=== PATIENT | female | born 1960 | race Caucasian/White ===

== ENCOUNTER 2017-02-05 09:09 | Emergency (ER) | payer OTHER ==
[~2017-02-05] VITALS: Ht 175.3 cm; Wt 149.7 kg
[~2017-02-05 09:09] MED LIST: CALCTAB25 PO; CEPH-37 PO; CHOL20007 PO; FLUO10CA15 PO; LIS10T PO; MULTTAB61 PO
[2017-02-05 12:14] VITALS: BP 138/76
== END 2017-02-05 12:38 | disposition home or self-care (01) ==
LOC: ER 09:09
DX: M54.42 Lumbago with sciatica, left side (principal); M54.16 Radiculopathy, lumbar region; I12.9 Hypertensive chronic kidney disease with stage 1 through stage 4 chronic kidney disease, or unspecified chronic kidney disease; N18.9 Chronic kidney disease, unspecified; Z88.8 Allergy status to other drugs, medicaments and biological substances; Z91.041 Radiographic dye allergy status
CPT/HCPCS: 93971

== ENCOUNTER 2017-05-27 20:00 | Emergency (ER) | payer OTHER ==
[~2017-05-27] VITALS: Ht 175.3 cm; Wt 142.9 kg
[2017-05-27 20:58] LABS: Urine Bilirubin Negative (Negative); Urine Blood Negative /uL (Negative); Urine Color Yellow (Yellow); Urine Glucose Normal (Normal); Urine Ketone Negative (Negative); Urine Mucus FEW (None Seen); Urine Nitrite Negative (Negative); Urine RBC 1 /hpf (0 - 4); Urine Squamous Epithelial Cell FEW /hpf (<5); Urine Urobilinogen Normal (Negative); Urine pH 5.5 (5.0-8.0)
[2017-05-27 21:35] LABS: Basophils # (auto) 0 uL; Basophils % (auto) 0.4 % (0.0-2.0); CONDITION Y; Eosinophils # (auto) 0.2 uL; Eosinophils % (auto) 1.6 % (0.0-7.0); Hematocrit 46.9 % (36.0-46.0); Hemoglobin 15.4 g/dL (12.2-16.2); Lymphocytes # (auto) 1.7 uL; Lymphocytes % (auto) 15.1 % (10.0-50.0); Mean Corpuscular Hemoglobin 28.4 pg (28.0-32.0); Mean Corpuscular Hgb Conc. 32.9 g/dL (32.0-36.0); Mean Corpuscular Volume 86.3 fL (80.0-100.0); Mean Platelet Volume 9.2 fL (7.4-10.4); Monocytes % (auto) 9.1 % (0.0-12.0); Neutrophils # (auto) 8.4 uL; Neutrophils % (auto) 73.8 % (37.0-80.0); Platelet Count (auto) 353 10^3/uL (140-450); Red Cell Distribution Width 15.1 % (11.6-16.0); White Blood Cell 11.3 10^3/uL (4.4-10.8)
[2017-05-27 21:45] LABS: INR 1.01 (0.9-1.15); Partial Thromboplastin Time 27.3 sec (22.64-33.71)
[2017-05-27 21:51] LABS: Albumin 3.5 g/dL (3.4-5.0); Bilirubin, Total 0.2 mg/dL (0.2-1.0); Calcium 9.3 mg/dL (8.5-10.1); Potassium 4.5 mmol/L (3.5-5.1); Total Protein 7.7 g/dL (6.4-8.2)
[2017-05-28 05:13] VITALS: BP 134/77
== END 2017-05-28 05:14 | disposition home or self-care (01) ==
LOC: ER 20:03
DX: R42 Dizziness and giddiness (principal); I12.9 Hypertensive chronic kidney disease with stage 1 through stage 4 chronic kidney disease, or unspecified chronic kidney disease; N18.9 Chronic kidney disease, unspecified; E66.01 Morbid (severe) obesity due to excess calories; I82.501 Chronic embolism and thrombosis of unspecified deep veins of right lower extremity; M54.31 Sciatica, right side
CPT/HCPCS: 36415; 70450; 80053; 81001; 84484; 85025; 85610; 85730; 93005

== ENCOUNTER → 2017-11-25 | Outpatient (CLI) | payer OTHER ==
[2017-11-25 08:33] LABS: Basophils # (auto) 0.1 uL; Basophils % (auto) 0.7 % (0.0-2.0); Eosinophils # (auto) 0.2 uL; Eosinophils % (auto) 2.5 % (0.0-7.0); Hematocrit 46.3 % (36.0-46.0); Hemoglobin 15.4 g/dL (12.2-16.2); Lymphocytes # (auto) 1.5 uL; Mean Corpuscular Hemoglobin 28.3 pg (28.0-32.0); Mean Corpuscular Hgb Conc. 33.2 g/dL (32.0-36.0); Mean Corpuscular Volume 85.3 fL (80.0-100.0); Monocytes # (auto) 0.7 uL; Monocytes % (auto) 9.1 % (0.0-12.0); Neutrophils # (auto) 5.2 uL; Neutrophils % (auto) 67.7 % (37.0-80.0); Nucleated Red Blood Cells % 0.1 %; Platelet Count (auto) 316 10^3/uL (140-450); Red Blood Cells 5.42 10^6/uL (4.0-5.20); Red Cell Distribution Width 15.2 % (11.8-14.3); White Blood Cell 7.7 10^3/uL (4.4-10.8)
[2017-11-25 08:44] LABS: Albumin 3.4 g/dL (3.4-5.0); BUN/Creatinine Ratio 15.7; Bilirubin, Total 0.4 mg/dL (0.2-1.0); Total Protein 7.6 g/dL (6.4-8.2)
== END | disposition home or self-care (01) ==
LOC: LAB 07:50
PROVIDERS: ATTEND Physician Assistant
DX: I10 Essential (primary) hypertension (principal); E66.01 Morbid (severe) obesity due to excess calories; I83.93 Asymptomatic varicose veins of bilateral lower extremities; E55.9 Vitamin D deficiency, unspecified; G60.9 Hereditary and idiopathic neuropathy, unspecified
CPT/HCPCS: 36415; 80053; 80061; 82306; 83036; 85025

== ENCOUNTER 2018-01-11 16:09 | Emergency (ER) | payer OTHER ==
[~2018-01-11] VITALS: Ht 175.3 cm; Wt 145.1 kg
[2018-01-11 16:47] VITALS: BP 124/72
[2018-01-11] MEDS ORDERED: KETOROLAC TROMETH 60MG/2ML VIAL IM ONE (17:00)
== END 2018-01-11 18:26 | disposition home or self-care (01) ==
LOC: ER 16:16
DX: S30.0XXA Contusion of lower back and pelvis, initial encounter (principal); S69.91XA Unspecified injury of right wrist, hand and finger(s), initial encounter; I12.9 Hypertensive chronic kidney disease with stage 1 through stage 4 chronic kidney disease, or unspecified chronic kidney disease; N18.9 Chronic kidney disease, unspecified; Z88.8 Allergy status to other drugs, medicaments and biological substances; W01.0XXA Fall on same level from slipping, tripping and stumbling without subsequent striking against object, initial encounter; Y93.89 Activity, other specified; Y99.8 Other external cause status; Y92.89 Other specified places as the place of occurrence of the external cause
CPT/HCPCS: 29125; 72220; 73110; 96372; 99284; J1885

== ENCOUNTER 2018-09-29 10:03 | Emergency (ER) | payer OTHER ==
[~2018-09-29] VITALS: Ht 162.6 cm; Wt 90.7 kg
[2018-09-29 13:24] VITALS: BP 145/82
== END 2018-09-29 13:27 | disposition home or self-care (01) ==
LOC: ER 10:03
DX: S76.011A Strain of muscle, fascia and tendon of right hip, initial encounter (principal); I12.9 Hypertensive chronic kidney disease with stage 1 through stage 4 chronic kidney disease, or unspecified chronic kidney disease; N18.9 Chronic kidney disease, unspecified; Z88.6 Allergy status to analgesic agent; Z91.041 Radiographic dye allergy status; X50.0XXA Overexertion from strenuous movement or load, initial encounter; Y93.89 Activity, other specified; Y99.8 Other external cause status; Y92.89 Other specified places as the place of occurrence of the external cause
CPT/HCPCS: 73502

== ENCOUNTER → 2019-01-16 | Outpatient (CLI) | payer OTHER ==
[2019-01-16 10:08] LABS: Basophils # (auto) 0.1 uL; Basophils % (auto) 0.8 % (0.0-2.0); Eosinophils # (auto) 0.1 uL; Eosinophils % (auto) 2.3 % (0.0-7.0); Hematocrit 46.2 % (36.0-46.0); Lymphocytes # (auto) 1.3 uL; Lymphocytes % (auto) 20.4 % (10.0-50.0); Mean Corpuscular Hemoglobin 28.4 pg (28.0-32.0); Mean Corpuscular Hgb Conc. 32.4 g/dL (32.0-36.0); Mean Corpuscular Volume 87.5 fL (80.0-100.0); Monocytes # (auto) 0.6 uL; Neutrophils # (auto) 4.4 uL; Neutrophils % (auto) 67.5 % (37.0-80.0); Nucleated Red Blood Cells % 0.1 %; Platelet Count (auto) 280 10^3/uL (140-450); Red Blood Cells 5.28 10^6/uL (4.0-5.20); Red Cell Distribution Width 14.9 % (11.8-14.3); White Blood Cell 6.5 10^3/uL (4.4-10.8)
[2019-01-16 10:42] LABS: Albumin 3.5 g/dL (3.4-5.0); Calcium 9.4 mg/dL (8.5-10.1); Potassium 5.1 mmol/L (3.5-5.1)
[2019-01-16 10:48] LABS: BUN/Creatinine Ratio 28.8; Bilirubin, Total 0.4 mg/dL (0.2-1.0); Total Protein 7.4 g/dL (6.4-8.2)
== END | disposition home or self-care (01) ==
LOC: LAB 09:46
PROVIDERS: ATTEND Physician Assistant
DX: I82.409 Acute embolism and thrombosis of unspecified deep veins of unspecified lower extremity (principal); I12.9 Hypertensive chronic kidney disease with stage 1 through stage 4 chronic kidney disease, or unspecified chronic kidney disease; N18.9 Chronic kidney disease, unspecified; R63.5 Abnormal weight gain; E55.9 Vitamin D deficiency, unspecified
CPT/HCPCS: 36415; 80053; 80061; 82306; 85025

== ENCOUNTER → 2019-04-05 | Outpatient (CLI) | payer OTHER | END | disposition home or self-care (01) | LOC: CARD WEST 10:31 | PROVIDERS: ATTEND Internal Medicine | DX: R94.31 Abnormal electrocardiogram [ECG] [EKG] (principal); I12.9 Hypertensive chronic kidney disease with stage 1 through stage 4 chronic kidney disease, or unspecified chronic kidney disease; N18.9 Chronic kidney disease, unspecified | CPT/HCPCS: 93306 ==

== ENCOUNTER → 2019-11-09 | Outpatient (CLI) | payer OTHER | END | disposition home or self-care (01) | LOC: LAB 10:38 | PROVIDERS: ATTEND Physician Assistant | DX: R19.8 Other specified symptoms and signs involving the digestive system and abdomen (principal) | CPT/HCPCS: 87045; 87177; 87427 ==

== ENCOUNTER 2020-11-03 13:10 | Emergency (ER) | payer OTHER ==
[~2020-11-03] VITALS: Ht 175.3 cm; Wt 140.6 kg
[~2020-11-03 13:10] MED LIST changes: +MULT-1018 PO; -MULTTAB61 PO
[2020-11-03 13:47] LABS: Basophils # (auto) 0.1 10 ^3/uL (0-0.2); Basophils % (auto) 0.7 % (0.0-2.0); Eosinophils # (auto) 0.1 10 ^3/uL (0-0.8); Eosinophils % (auto) 1.4 % (0.0-7.0); Hematocrit 42.3 % (36.0-46.0); Hemoglobin 14.2 g/dL (12.2-16.2); Lymphocytes # (auto) 1.6 10 ^3/uL (0.4-5.4); Lymphocytes % (auto) 20.7 % (10.0-50.0); Mean Corpuscular Hemoglobin 29.6 pg (28.0-32.0); Mean Corpuscular Hgb Conc. 33.6 g/dL (32.0-36.0); Mean Corpuscular Volume 87.9 fL (80.0-100.0); Monocytes # (auto) 0.6 10 ^3/uL (0-1.3); Monocytes % (auto) 8.3 % (0.0-12.0); Neutrophils # (auto) 5.4 10 ^3/uL (1.6-8.6); Neutrophils % (auto) 68.9 % (37.0-80.0); Nucleated Red Blood Cells % 0.1 %; Platelet Count (auto) 293 10^3/uL (140-450); Red Blood Cells 4.81 10^6/uL (4.0-5.20); Red Cell Distribution Width 13.9 % (11.8-14.3); White Blood Cell 7.8 10^3/uL (4.4-10.8)
[2020-11-03 14:01] LABS: Albumin 3.4 g/dL (3.4-5.0); Calcium 8.8 mg/dL (8.5-10.1); Magnesium 2.3 mg/dL (1.6-2.6); Potassium 4.2 mmol/L (3.5-5.1)
[2020-11-03 14:06] LABS: Bilirubin, Total 0.4 mg/dL (0.2-1.0); Total Protein 7.4 g/dL (6.4-8.2)
[2020-11-03] MEDS ORDERED: HYDROcodone-ACET 5/325MG TAB PO ONE (16:15)
[2020-11-03] MEDS ORDERED: ONDANSETRON ODT 4 MG TAB PO ONE (16:15)
[2020-11-03 16:48] LABS: Urine Bacteria FEW /hpf (None Seen); Urine Blood TRACE /uL (Negative); Urine Mucus FEW (None Seen); Urine Specific Gravity 1.022 (1.001-1.035); Urine WBC 6 /hpf (0 - 5)
[2020-11-03 18:09] VITALS: BP 135/85
== END 2020-11-03 18:13 | disposition home or self-care (01) ==
LOC: ER 13:10
DX: N39.0 Urinary tract infection, site not specified (principal); I12.9 Hypertensive chronic kidney disease with stage 1 through stage 4 chronic kidney disease, or unspecified chronic kidney disease; N18.9 Chronic kidney disease, unspecified; Z79.899 Other long term (current) drug therapy; Z88.0 Allergy status to penicillin
CPT/HCPCS: 36415; 74176; 80053; 81001; 82150; 83605; 83690; 83735; 85025; 99284; Q0162

== ENCOUNTER 2023-08-30 14:55 | Inpatient (IN) | payer OTHER ==
[~2023-08-30] VITALS: Ht 175.3 cm; Wt 150.0 kg
[2023-08-30 15:44] LABS: Basophils # (auto) 0.1 10 ^3/uL (0-0.2); Basophils % (auto) 1.2 % (0.0-2.0); Eosinophils # (auto) 0.1 10 ^3/uL (0-0.8); Eosinophils % (auto) 1.6 % (0.0-7.0); Hematocrit 26.4 % (36.0-46.0); Hemoglobin 7.5 g/dL (12.2-16.2); Lymphocytes # (auto) 1.7 10 ^3/uL (0.4-5.4); Lymphocytes % (auto) 21.3 % (10.0-50.0); Mean Corpuscular Hemoglobin 15.9 pg (28.0-32.0); Mean Corpuscular Hgb Conc. 28.4 g/dL (32.0-36.0); Mean Corpuscular Volume 56.2 fL (80.0-100.0); Monocytes # (auto) 0.8 10 ^3/uL (0-1.3); Monocytes % (auto) 10.1 % (0.0-12.0); Neutrophils # (auto) 5.3 10 ^3/uL (1.6-8.6); Neutrophils % (auto) 65.8 % (37.0-80.0); Red Blood Cells 4.69 10^6/uL (4.0-5.20); White Blood Cell 8.1 10^3/uL (4.4-10.8)
[2023-08-30 15:45] LABS: Red Cell Distribution Width 21.4 % (11.8-14.3)
[2023-08-30] MEDS ORDERED: PANT40TA2 PO (15:50)
[2023-08-30 16:14] LABS: Alanine Aminotransferase 14 U/L (7-40); Albumin 4.2 g/dL (3.2-4.8); Alkaline Phosphatase 78 U/L (46-116); Anion Gap 9 (5-15); Aspartate Aminotransferase 15 U/L (13-40); BUN/Creatinine Ratio 18.5 (10.0-20.0); Blood Urea Nitrogen 15 mg/dL (9-23); Calcium 9.3 mg/dL (8.5-10.1); Carbon Dioxide 23 mmol/L (20-30); Chloride 107 mmol/L (98-107); Glucose 111 mg/dL (74-106); Sodium 139 mmol/L (136-145)
[2023-08-30 16:15] LABS: Bilirubin, Total 0.3 mg/dL (0.2-1.0); Total Protein 6.6 g/dL (5.7-8.2)
[2023-08-30] MEDS ORDERED: ONDANSETRON HCL 4 MG/2 ML VIAL IV ONE (16:30)
[2023-08-30] MEDS ORDERED: ENOXAPARIN SOD 120 MG/0.8 ML SYRINGE SC ONE (16:30)
[2023-08-30] MEDS ORDERED: MORPHINE SULFATE INJ 2 MG/ml SYRG IV ONE (16:30)
[2023-08-30 16:33] LABS: Anisocytosis Moderate; Hypochromia Marked; Large Platelets FEW; Platelet Estimate Increased
[2023-08-30 16:43] LABS: Lipase 26 U/L (12-53)
[2023-08-30] MEDS ORDERED: ONDANSETRON HCL 4 MG/2 ML VIAL IV PRN (19:15)
[2023-08-30] MEDS ORDERED: MORPHINE SULFATE 4 MG/ML SYR/VIAL IV PRN (19:15)
[2023-08-30] MEDS ORDERED: NITROGLYCERIN 0.4 MG SL TAB SL PRN (19:15)
[2023-08-30] MEDS ORDERED: ACETAMINOPHEN 325 MG TAB PO PRN (19:15)
[2023-08-30 20:15] LABS: % Iron Saturation 6.5 % (15-50)
[2023-08-30 20:40] LABS: Hemoglobin 7.8 g/dL (12.2-16.2)
[2023-08-30 20:45] VITALS: PULSE 65; RESP 18; O2SAT 96
[2023-08-30 20:54] LABS: INR 1.07 (0.9-1.15); Prothrombin Time 11.2 sec (9.3-11.8)
[2023-08-30] MEDS: ATORVASTATIN 20 MG TAB PO SCH (21:13)
[2023-08-30] MEDS: PANTOPRAZOLE 40 MG/10 ML VIAL INJ IV SCH (21:14)
[2023-08-30] MEDS: CALCIUM W/VIT D (600MG/400IU) TAB PO SCH (21:14)
[2023-08-30 21:34] LABS: Ferritin 2.5 ng/mL (10-291); Folate (Folic Acid) > 24.00 ng/mL (>5.38)
[2023-08-30 23:58] VITALS: BP 146/80; PULSE 69; RESP 14; TEMP 98.4
[2023-08-31] VITALS (7 sets, daily range): BP systolic 112–152; BP diastolic 56–73; PULSE 64–84; RESP 12–20; TEMP 98.2–98.4; O2SAT 93–96
[2023-08-31 05:33] LABS: Alanine Aminotransferase 10 U/L (7-40); Albumin 3.7 g/dL (3.2-4.8); Anion Gap 7 (5-15); Aspartate Aminotransferase 13 U/L (13-40); Blood Urea Nitrogen 12 mg/dL (9-23); Calcium 8.4 mg/dL (8.7-10.4); Carbon Dioxide 23 mmol/L (20-30); Chloride 110 mmol/L (98-107); Glucose 100 mg/dL (74-106); Potassium 3.7 mmol/L (3.5-5.1); Sodium 140 mmol/L (136-145)
[2023-08-31 05:34] LABS: Bilirubin, Total 0.5 mg/dL (0.2-1.0)
[2023-08-31 05:38] LABS: Basophils # (auto) 0.1 10 ^3/uL (0-0.2); Eosinophils # (auto) 0.1 10 ^3/uL (0-0.8); Lymphocytes # (auto) 1.6 10 ^3/uL (0.4-5.4); Monocytes # (auto) 0.8 10 ^3/uL (0-1.3); Neutrophils # (auto) 4.6 10 ^3/uL (1.6-8.6); Neutrophils % (auto) 63.9 % (37.0-80.0); White Blood Cell 7.2 10^3/uL (4.4-10.8)
[2023-08-31 05:41] LABS: Basophils % (auto) 1.4 % (0.0-2.0); Hematocrit 25.6 % (36.0-46.0); Hemoglobin 7.5 g/dL (12.2-16.2); Lymphocytes % (auto) 22.2 % (10.0-50.0); Mean Corpuscular Hemoglobin 17.3 pg (28.0-32.0); Mean Corpuscular Hgb Conc. 29.4 g/dL (32.0-36.0); Mean Corpuscular Volume 58.7 fL (80.0-100.0); Monocytes % (auto) 10.5 % (0.0-12.0); Red Blood Cells 4.36 10^6/uL (4.0-5.20)
[2023-08-31 05:46] LABS: Alkaline Phosphatase 72 U/L (46-116)
[2023-08-31 06:05] LABS: Red Cell Distribution Width 21.8 % (11.8-14.3)
[2023-08-31 07:02] LABS: Triglycerides 98 mg/dL (< 150)
[2023-08-31 07:03] LABS: LDL Cholesterol 84 mg/dL (< 100)
[2023-08-31 07:04] LABS: Cholesterol 131 mg/dL (< 200); HDL Cholesterol 36 mg/dL (40-59)
[2023-08-31 09:48] LABS: Urine Bacteria FEW /hpf (None Seen); Urine Blood Negative /uL (Negative); Urine Clarity HAZY (Clear); Urine Color Yellow (Yellow); Urine Mucus FEW (None Seen); Urine Protein, UAD TRACE (Negative); Urine Specific Gravity 1.023 (1.001-1.035); Urine Urobilinogen Normal (Negative); Urine WBC 3 /hpf (0 - 5); Urine pH 5.5 (5.0-8.0)
[2023-08-31] MEDS: FLUoxetine HCL 10 MG CAP PO SCH (11:28)
[2023-08-31] MEDS: CHOLECALCIFEROL (VITD3) 2,000 UNIT CAP/TAB PO SCH (11:29)
[2023-08-31] MEDS: DOCUSATE SOD 100 MG CAP PO SCH (11:29)
[2023-08-31] MEDS: MULTIPLE VITAMIN TAB PO SCH (11:30)
[2023-08-31] MEDS: PANTOPRAZOLE 40 MG/10 ML VIAL INJ IV SCH ×2 (11:30→22:03)
[2023-08-31] MEDS: CALCIUM W/VIT D (600MG/400IU) TAB PO SCH ×2 (11:30→22:03)
[2023-08-31] MEDS: LISINOPRIL 5 MG TAB PO SCH (11:31)
[2023-08-31 13:00] LABS: Hemoglobin 7.7 g/dL (12.2-16.2)
[2023-08-31] MEDS: SODIUM FERR GLUC 62.5MG/5ML 125 MG in SODIUM CHL 0.9% 100 ML IV SCH (16:03)
[2023-08-31 20:35] LABS: Hemoglobin 8.3 g/dL (12.2-16.2)
[2023-08-31] MEDS: ATORVASTATIN 20 MG TAB PO SCH (22:03)
[2023-09-01] VITALS (11 sets, daily range): BP systolic 106–139; BP diastolic 54–80; PULSE 68–95; RESP 15–20; TEMP 98–98.5; O2SAT 91–95
[2023-09-01 06:10] LABS: Anion Gap 7 (5-15); Calcium 9.1 mg/dL (8.5-10.1); Carbon Dioxide 25 mmol/L (20-30); Chloride 111 mmol/L (98-107); Sodium 143 mmol/L (136-145)
[2023-09-01 06:11] LABS: Basophils # (auto) 0.1 10 ^3/uL (0-0.2); Hemoglobin 7.6 g/dL (12.2-16.2); Lymphocytes # (auto) 1.9 10 ^3/uL (0.4-5.4); Monocytes # (auto) 0.9 10 ^3/uL (0-1.3)
[2023-09-01 06:13] LABS: Basophils % (auto) 1.1 % (0.0-2.0); Eosinophils # (auto) 0.3 10 ^3/uL (0-0.8); Eosinophils % (auto) 3.5 % (0.0-7.0); Lymphocytes % (auto) 24.9 % (10.0-50.0); Mean Corpuscular Hemoglobin 17.5 pg (28.0-32.0); Mean Corpuscular Hgb Conc. 29.3 g/dL (32.0-36.0); Mean Corpuscular Volume 59.6 fL (80.0-100.0); Monocytes % (auto) 11.9 % (0.0-12.0); Neutrophils # (auto) 4.5 10 ^3/uL (1.6-8.6); Neutrophils % (auto) 58.6 % (37.0-80.0); Red Blood Cells 4.36 10^6/uL (4.0-5.20); White Blood Cell 7.7 10^3/uL (4.4-10.8)
[2023-09-01 06:15] LABS: Red Cell Distribution Width 22.3 % (11.8-14.3)
[2023-09-01 06:16] LABS: BUN/Creatinine Ratio 16.4 (10.0-20.0); Blood Urea Nitrogen 12 mg/dL (9-23); Glucose 95 mg/dL (74-106)
[2023-09-01] MEDS ORDERED: ADENOSINE 126 MG in GIVE UN-DILUTED 0 ML IV ONE (07:45)
[2023-09-01] MEDS: PANTOPRAZOLE 40 MG/10 ML VIAL INJ IV SCH ×2 (10:06→21:44)
[2023-09-01] MEDS: CALCIUM W/VIT D (600MG/400IU) TAB PO SCH ×2 (10:06→21:44)
[2023-09-01] MEDS: MULTIPLE VITAMIN TAB PO SCH (10:06)
[2023-09-01] MEDS: CHOLECALCIFEROL (VITD3) 2,000 UNIT CAP/TAB PO SCH (10:06)
[2023-09-01] MEDS: DOCUSATE SOD 100 MG CAP PO SCH (10:06)
[2023-09-01] MEDS: FLUoxetine HCL 10 MG CAP PO SCH (10:06)
[2023-09-01] MEDS: LISINOPRIL 5 MG TAB PO SCH (10:07)
[2023-09-01] MEDS ORDERED: levoFLOXacin 500MG 100 ML IV ONE (11:15)
[2023-09-01] MEDS: SODIUM FERR GLUC 62.5MG/5ML 125 MG in SODIUM CHL 0.9% 100 ML IV SCH (15:08)
[2023-09-01] MEDS: ATORVASTATIN 20 MG TAB PO SCH (21:44)
[2023-09-02] VITALS (15 sets, daily range): BP systolic 116–152; BP diastolic 61–90; PULSE 55–77; RESP 12–18; TEMP 97.6–98.4; O2SAT 93–98
[2023-09-02 07:41] LABS: Basophils # (auto) 0.1 10 ^3/uL (0-0.2); Lymphocytes # (auto) 1.5 10 ^3/uL (0.4-5.4); Mean Corpuscular Hemoglobin 18.1 pg (28.0-32.0); Nucleated Red Blood Cells % 0.1 %
[2023-09-02 07:42] LABS: Basophils % (auto) 0.8 % (0.0-2.0); Eosinophils # (auto) 0.3 10 ^3/uL (0-0.8); Eosinophils % (auto) 2.8 % (0.0-7.0); Hemoglobin 8.7 g/dL (12.2-16.2); Mean Corpuscular Hgb Conc. 29.2 g/dL (32.0-36.0); Mean Corpuscular Volume 62.1 fL (80.0-100.0); Monocytes % (auto) 10.8 % (0.0-12.0); Neutrophils # (auto) 6.2 10 ^3/uL (1.6-8.6); Neutrophils % (auto) 68.6 % (37.0-80.0); Red Blood Cells 4.82 10^6/uL (4.0-5.20); Red Cell Distribution Width 25.4 % (11.8-14.3)
[2023-09-02] MEDS ORDERED: IODIXANOL 320MG/ML 100ML BTL IV ONE ×2 (07:46→08:44)
[2023-09-02] MEDS ORDERED: LIDOCAINE 2%HCL (LOCAL ANESTH.) INJ 20ML MDV ONE (07:46)
[2023-09-02] MEDS ORDERED: ANGIOMAX 250 MG VIAL IV ONE ×2 (07:48→08:52)
[2023-09-02] MEDS ORDERED: HEPARIN SODIUM (PORCINE) 5000 UNITS/ML 1ML VIAL ONE (07:48)
[2023-09-02] MEDS ORDERED: VERAPAMIL 2.5MG/ML INJ 2ML VIAL IV ONE (07:48)
[2023-09-02] MEDS ORDERED: SODIUM CHL 0.9% 50 ML ONE ×2 (07:49→08:52)
[2023-09-02] MEDS ORDERED: fentaNYL CITRATE 100 MCG/2 ML VL ONE (07:49)
[2023-09-02] MEDS ORDERED: MIDAZOLAM HCL 2MG/2ML 2ml VIAL (1mg/ml) ONE (07:49)
[2023-09-02 07:57] LABS: INR 1.09 (0.9-1.15); Partial Thromboplastin Time 20.1 SEC (24.5-34.5); Prothrombin Time 11.4 sec (9.3-11.8)
[2023-09-02 08:00] LABS: Alanine Aminotransferase 16 U/L (7-40); Albumin 3.7 g/dL (3.2-4.8); Alkaline Phosphatase 74 U/L (46-116); Anion Gap 7 (5-15); Aspartate Aminotransferase 30 U/L (13-40); BUN/Creatinine Ratio 14.1 (10.0-20.0); Bilirubin, Total 0.5 mg/dL (0.2-1.0); Blood Urea Nitrogen 9 mg/dL (9-23); Calcium 9.1 mg/dL (8.5-10.1); Carbon Dioxide 23 mmol/L (20-30); Chloride 110 mmol/L (98-107); Glucose 102 mg/dL (74-106); Potassium 4.3 mmol/L (3.5-5.1); Sodium 140 mmol/L (136-145)
[2023-09-02] MEDS ORDERED: CLOPIDOGREL 300 MG TAB ONE (09:02)
[2023-09-02] MEDS ORDERED: CLOPIDOGREL BISULFATE 75 MG TAB PO SCH (10:00)
[2023-09-02] MEDS ORDERED: ASPirin 81 mg TAB PO ONE (10:15)
[2023-09-02] MEDS ORDERED: hydrALAZINE HCL 20 MG/ML VL IV PRN (10:15)
[2023-09-02] MEDS: PANTOPRAZOLE 40 MG/10 ML VIAL INJ IV SCH (10:40)
[2023-09-02] MEDS: CALCIUM W/VIT D (600MG/400IU) TAB PO SCH (10:41)
[2023-09-02] MEDS: FLUoxetine HCL 10 MG CAP PO SCH (10:41)
[2023-09-02] MEDS: DOCUSATE SOD 100 MG CAP PO SCH (10:41)
[2023-09-02] MEDS: CHOLECALCIFEROL (VITD3) 2,000 UNIT CAP/TAB PO SCH (10:41)
[2023-09-02] MEDS: MULTIPLE VITAMIN TAB PO SCH (10:41)
[2023-09-02] MEDS: LISINOPRIL 5 MG TAB PO SCH (10:43)
[2023-09-02] MEDS: SODIUM FERR GLUC 62.5MG/5ML 125 MG in SODIUM CHL 0.9% 100 ML IV SCH (11:56)
[2023-09-02] MEDS ORDERED: FERR-7 PO (14:23)
[2023-09-02] MEDS ORDERED: DOCU-265 PO (14:23)
[2023-09-02] MEDS ORDERED: METO25TA5 PO (14:23)
[2023-09-02] MEDS ORDERED: CLOP75TA70 PO (14:23)
[2023-09-02] MEDS ORDERED: APIX5TAB PO (14:23)
[2023-09-02] MEDS ORDERED: ATOR20TA50 PO (14:23)
[2023-09-02] MEDS ORDERED: APIXABAN 2.5 MG TAB PO SCH (22:00)
[2023-09-03] MEDS ORDERED: CLOPIDOGREL BISULFATE 75 MG TAB PO SCH (10:00)
[2023-09-03] MEDS ORDERED: ASPirin 81 mg TAB PO SCH (10:00)
== END 2023-09-02 16:50 | disposition home or self-care (01) | DRG 270 ==
LOC: ER 14:55 → TELE 19:31 → TELE-WESTW 08-31 23:43
PROVIDERS: ADMIT Nurse Practitioner Family; ATTEND Nurse Practitioner Acute Care
PROC: 30233N1 Transfusion of Nonautologous Red Blood Cells into Peripheral Vein, Percutaneous Approach (ICD-10-PCS; 2023-08-31)
PROC: 027237Z Dilation of Coronary Artery, Three Arteries with Four or More Drug-eluting Intraluminal Devices, Percutaneous Approach (ICD-10-PCS; principal; 2023-09-02)
PROC: 5A02210 Assistance with Cardiac Output using Balloon Pump, Continuous (ICD-10-PCS; 2023-09-02)
PROC: 4A023N7 Measurement of Cardiac Sampling and Pressure, Left Heart, Percutaneous Approach (ICD-10-PCS; 2023-09-02)
PROC: B211YZZ Fluoroscopy of Multiple Coronary Arteries using Other Contrast (ICD-10-PCS; 2023-09-02)
DX: I25.110 Atherosclerotic heart disease of native coronary artery with unstable angina pectoris (principal); I21.4 Non-ST elevation (NSTEMI) myocardial infarction; D62 Acute posthemorrhagic anemia; N39.0 Urinary tract infection, site not specified; Z68.42 Body mass index [BMI] 45.0-49.9, adult; K44.9 Diaphragmatic hernia without obstruction or gangrene; K21.9 Gastro-esophageal reflux disease without esophagitis; K29.70 Gastritis, unspecified, without bleeding; D50.9 Iron deficiency anemia, unspecified; D75.839 Thrombocytosis, unspecified; E66.01 Morbid (severe) obesity due to excess calories; F32.A Depression, unspecified; I10 Essential (primary) hypertension; G47.30 Sleep apnea, unspecified; Z88.1 Allergy status to other antibiotic agents; Z88.0 Allergy status to penicillin; Z86.718 Personal history of other venous thrombosis and embolism
CPT/HCPCS: 33970; 36415; 36430; 71045; 74176; 78452; 80048; 80053; 80061; 81001; 82270; 82607; 82728; 82746; 83010; 83540; 83550; 83615; 83690; 83735; 84484; 85014; 85018; 85025; 85045; 85610; 85730; 86850; 86880; 86885; 86900; 86901; 86920; 92929; 92941; 93005; 93017; 93306; 93458; 99152; C9113; G0378; J0153; J1956; J2250; Q9967

== ENCOUNTER → 2023-09-07 | Outpatient (CLI) | payer OTHER ==
[~2023-09-07] MED LIST changes: +APIX5TAB PO; +ATOR20TA50 PO; +CLOP75TA70 PO; +DOCU-265 PO; +FERR-7 PO; +METO25TA5 PO; +PANT40TA2 PO
[2023-09-07 15:18] LABS: Basophils # (auto) 0.1 10 ^3/uL (0-0.2); Hematocrit 35.1 % (36.0-46.0); Hemoglobin 10.3 g/dL (12.2-16.2); Lymphocytes # (auto) 1.5 10 ^3/uL (0.4-5.4); Mean Corpuscular Hemoglobin 18.7 pg (28.0-32.0); Mean Corpuscular Hgb Conc. 29.2 g/dL (32.0-36.0); Red Blood Cells 5.49 10^6/uL (4.0-5.20)
[2023-09-07 15:20] LABS: Basophils % (auto) 0.7 % (0.0-2.0); Eosinophils # (auto) 0.2 10 ^3/uL (0-0.8); Eosinophils % (auto) 2.6 % (0.0-7.0); Lymphocytes % (auto) 16.2 % (10.0-50.0); Mean Corpuscular Volume 63.9 fL (80.0-100.0); Neutrophils # (auto) 6.5 10 ^3/uL (1.6-8.6); Neutrophils % (auto) 69.5 % (37.0-80.0); White Blood Cell 9.3 10^3/uL (4.4-10.8)
[2023-09-07 15:27] LABS: Red Cell Distribution Width 31.2 % (11.8-14.3)
== END | disposition home or self-care (01) ==
LOC: LAB 15:02
PROVIDERS: ATTEND Student in an Organized Health Care Education/Training Program
DX: I10 Essential (primary) hypertension (principal)
CPT/HCPCS: 36415; 85025

== ENCOUNTER → 2024-04-04 | Outpatient (CLI) | payer OTHER | END | disposition home or self-care (01) | LOC: XYW 09:57 | PROVIDERS: ATTEND Student in an Organized Health Care Education/Training Program | DX: I35.1 Nonrheumatic aortic (valve) insufficiency (principal); I25.9 Chronic ischemic heart disease, unspecified | CPT/HCPCS: 93306 ==

== ENCOUNTER → 2024-06-29 | Outpatient (CLI) | payer OTHER ==
[2024-06-29 10:00] LABS: Basophils # (auto) 0 10 ^3/uL (0-0.2); Basophils % (auto) 0.8 % (0.0-2.0); Eosinophils # (auto) 0.1 10 ^3/uL (0-0.8); Eosinophils % (auto) 2.3 % (0.0-7.0); Hematocrit 45.5 % (36.0-46.0); Hemoglobin 15.6 g/dL (12.2-16.2); Lymphocytes # (auto) 1.3 10 ^3/uL (0.4-5.4); Lymphocytes % (auto) 21.4 % (10.0-50.0); Mean Corpuscular Hemoglobin 31.1 pg (28.0-32.0); Mean Corpuscular Hgb Conc. 34.3 g/dL (32.0-36.0); Mean Corpuscular Volume 90.7 fL (80.0-100.0); Monocytes # (auto) 0.5 10 ^3/uL (0-1.3); Monocytes % (auto) 8.8 % (0.0-12.0); Neutrophils % (auto) 66.7 % (37.0-80.0); Nucleated Red Blood Cells % 0.1 %; Platelet Count (auto) 240 10^3/uL (140-450); Red Blood Cells 5.01 10^6/uL (4.0-5.20); Red Cell Distribution Width 13.9 % (11.8-14.3)
[2024-06-29 10:27] LABS: Alanine Aminotransferase 18 U/L (7-40); Albumin 4.3 g/dL (3.2-4.8); Alkaline Phosphatase 85 U/L (46-116); Anion Gap 7 (5-15); Aspartate Aminotransferase 12 U/L (13-40); BUN/Creatinine Ratio 15.6 (10.0-20.0); Bilirubin, Total 0.6 mg/dL (0.2-1.0); Blood Urea Nitrogen 12 mg/dL (9-23); Calcium 9.9 mg/dL (8.7-10.4); Carbon Dioxide 26 mmol/L (20-31); Chloride 110 mmol/L (98-107); Cholesterol 110 mg/dL (< 200); Glucose 97 mg/dL (74-106); HDL Cholesterol 47 mg/dL (40-59); LDL Cholesterol 50 mg/dL (< 100); Potassium 4.3 mmol/L (3.5-5.1); Sodium 143 mmol/L (136-145); Total Protein 6.8 g/dL (5.7-8.2); Triglycerides 96 mg/dL (< 150)
== END | disposition home or self-care (01) ==
LOC: LAB 09:32
PROVIDERS: ATTEND Nurse Practitioner Family
DX: I10 Essential (primary) hypertension (principal); E66.01 Morbid (severe) obesity due to excess calories; E78.5 Hyperlipidemia, unspecified
CPT/HCPCS: 36415; 80053; 80061; 82306; 84439; 84443; 85025

== ENCOUNTER 2024-07-08 18:18 | Inpatient (IN) | payer MEDICARE, OTHER ==
[~2024-07-08] VITALS: Ht 175.3 cm; Wt 129.9 kg
[2024-07-08] MEDS: SODIUM CHLORIDE 0.9% 1,000 ML IV ONE (18:30)
[2024-07-08] MEDS: ONDANSETRON HCL 4 MG/2 ML VIAL IV ONE (18:30)
[2024-07-08] MEDS: PANTOPRAZOLE 40 MG/10 ML VIAL INJ IV ONE (18:30)
[2024-07-08 19:27] LABS: Basophils # (auto) 0.1 10 ^3/uL (0-0.2); Basophils % (auto) 0.7 % (0.0-2.0); Eosinophils # (auto) 0.1 10 ^3/uL (0-0.8); Eosinophils % (auto) 1.6 % (0.0-7.0); Hematocrit 50.1 % (36.0-46.0); Lymphocytes # (auto) 1.4 10 ^3/uL (0.4-5.4); Lymphocytes % (auto) 18.3 % (10.0-50.0); Mean Corpuscular Hgb Conc. 33.9 g/dL (32.0-36.0); Mean Corpuscular Volume 91.3 fL (80.0-100.0); Monocytes # (auto) 0.5 10 ^3/uL (0-1.3); Monocytes % (auto) 7.2 % (0.0-12.0); Neutrophils # (auto) 5.4 10 ^3/uL (1.6-8.6); Neutrophils % (auto) 72.2 % (37.0-80.0); Nucleated Red Blood Cells % 0.1 %; Platelet Count (auto) 266 10^3/uL (140-450); Red Blood Cells 5.49 10^6/uL (4.0-5.20); Red Cell Distribution Width 14.2 % (11.8-14.3); White Blood Cell 7.4 10^3/uL (4.4-10.8)
[2024-07-08 19:47] LABS: Alanine Aminotransferase 18 U/L (7-40); Albumin 4.7 g/dL (3.2-4.8); Alkaline Phosphatase 96 U/L (46-116); Anion Gap 12 (5-15); Aspartate Aminotransferase 19 U/L (13-40); BUN/Creatinine Ratio 18.6 (10.0-20.0); Bilirubin, Total 0.5 mg/dL (0.2-1.0); Blood Urea Nitrogen 16 mg/dL (9-23); Calcium 10.4 mg/dL (8.7-10.4); Carbon Dioxide 22 mmol/L (20-31); Chloride 107 mmol/L (98-107); Glucose 131 mg/dL (74-106); Lipase 38 U/L (12-53); Potassium 4.4 mmol/L (3.5-5.1); Sodium 141 mmol/L (136-145); Total Protein 7.2 g/dL (5.7-8.2)
[2024-07-08 20:45] LABS: Urine Bacteria FEW /hpf (None Seen); Urine Blood Negative /uL (Negative); Urine Clarity Turbid (Clear); Urine Color Yellow (Yellow); Urine Hyaline Cast FEW /lpf (0 - 2); Urine Mucus FEW (None Seen); Urine Protein, UAD TRACE (Negative); Urine Specific Gravity 1.024 (1.001-1.035); Urine Urobilinogen Normal (Negative); Urine WBC 16 /hpf (0 - 5); Urine pH 5.5 (5.0-9.0)
[2024-07-08 21:30] VITALS: PULSE 72; RESP 12; O2SAT 93
[2024-07-08] MEDS: NITROFURANTOIN 100 mg CAP PO ONE (21:38)
[2024-07-08] MEDS ORDERED: HYDROcodone-ACET 5/325MG TAB PO PRN (22:00)
[2024-07-08] MEDS ORDERED: MORPHINE SULFATE INJ 2 MG/ml SYRG IV PRN ×2 (22:00→22:30)
[2024-07-08] MEDS ORDERED: ONDANSETRON HCL 4 MG/2 ML VIAL IV PRN (22:00)
[2024-07-08] MEDS ORDERED: hydrALAZINE HCL 20 MG/ML VL IV PRN (22:00)
[2024-07-08] MEDS: SODIUM CHLOR 0.9% PF (SALINE LOCK) 10ML VIAL/SYR IV SCH (22:06)
[2024-07-08] MEDS: ATORVASTATIN 20 MG TAB PO SCH (22:11)
[2024-07-08] MEDS: APIXABAN 5 MG TAB PO SCH (22:12)
[2024-07-08] MEDS ORDERED: NITROGLYCERIN 0.4 MG SL TAB SL PRN (22:30)
[2024-07-08 23:45] VITALS: BP 131/78; PULSE 63; RESP 20; TEMP 97.7; O2SAT 92
[2024-07-09] VITALS (8 sets, daily range): BP systolic 107–140; BP diastolic 48–80; PULSE 59–80; RESP 16–20; TEMP 97.5–98.4; O2SAT 91–96
[2024-07-09] MEDS: PANTOPRAZOLE 40 MG/10 ML VIAL INJ IV SCH (09:59)
[2024-07-09] MEDS: levoFLOXacin 500MG 100 ML IV SCH (10:00)
[2024-07-09 10:58] LABS: Basophils # (auto) 0 10 ^3/uL (0-0.2); Basophils % (auto) 0.8 % (0.0-2.0); Eosinophils # (auto) 0.1 10 ^3/uL (0-0.8); Eosinophils % (auto) 1.8 % (0.0-7.0); Hemoglobin 16.1 g/dL (12.2-16.2); Lymphocytes # (auto) 1.1 10 ^3/uL (0.4-5.4); Lymphocytes % (auto) 17.5 % (10.0-50.0); Mean Corpuscular Hemoglobin 31.5 pg (28.0-32.0); Mean Corpuscular Hgb Conc. 34.2 g/dL (32.0-36.0); Monocytes # (auto) 0.6 10 ^3/uL (0-1.3); Monocytes % (auto) 10.5 % (0.0-12.0); Neutrophils # (auto) 4.2 10 ^3/uL (1.6-8.6); Neutrophils % (auto) 69.4 % (37.0-80.0); Platelet Count (auto) 235 10^3/uL (140-450); Red Blood Cells 5.11 10^6/uL (4.0-5.20); Red Cell Distribution Width 14.6 % (11.8-14.3); White Blood Cell 6.1 10^3/uL (4.4-10.8)
[2024-07-09 11:12] LABS: Alanine Aminotransferase 13 U/L (7-40); Albumin 4.2 g/dL (3.2-4.8); Alkaline Phosphatase 84 U/L (46-116); Anion Gap 7 (5-15); Aspartate Aminotransferase 10 U/L (13-40); BUN/Creatinine Ratio 17.5 (10.0-20.0); Blood Urea Nitrogen 11 mg/dL (9-23); Calcium 9.7 mg/dL (8.7-10.4); Carbon Dioxide 25 mmol/L (20-31); Chloride 111 mmol/L (98-107); Glucose 79 mg/dL (74-106); Potassium 3.9 mmol/L (3.5-5.1); Sodium 143 mmol/L (136-145)
[2024-07-09 11:13] LABS: Bilirubin, Total 0.6 mg/dL (0.2-1.0); Total Protein 6.8 g/dL (5.7-8.2)
[2024-07-09] MEDS: ACETAMINOPHEN 325 MG TAB PO PRN (18:49)
[2024-07-10] VITALS (8 sets, daily range): BP systolic 110–131; BP diastolic 53–75; PULSE 58–101; RESP 16–20; TEMP 97.3–98.6; O2SAT 91–98
[2024-07-10] MEDS ORDERED: MIDAZOLAM HCL 2MG/2ML 2ml VIAL (1mg/ml) ONE (07:45)
[2024-07-10] MEDS ORDERED: fentaNYL CITRATE 100 MCG/2 ML VL ONE (07:45)
[2024-07-10] MEDS: ONDANSETRON HCL 4 MG/2 ML VIAL IV ONE (08:30)
[2024-07-10] MEDS ORDERED: PROPOFOL 10 MG/ML 20 ML IV ONE (08:31)
[2024-07-10] MEDS ORDERED: KETAMINE 50mg/ML 1ml syringe ONE (08:31)
[2024-07-10] MEDS ORDERED: LIDOCAINE 2% (LOCAL ANESTH.) PF 5ml SDV ONE (08:31)
[2024-07-10] MEDS: DOCUSATE SOD 100 MG CAP PO PRN (10:41)
[2024-07-11] VITALS (7 sets, daily range): BP systolic 116–130; BP diastolic 69–76; PULSE 60–79; RESP 16–20; TEMP 97.8–98.8; O2SAT 93–98
[2024-07-11] MEDS ORDERED: LEVO500T91 PO (13:39)
[2024-07-11] MEDS ORDERED: PANT40T PO (13:39)
== END 2024-07-11 18:00 | disposition home or self-care (01) | DRG 384 ==
LOC: EDBD 18:18 → ER 18:32 → TELE 22:22 → TELE-WESTW 23:45
PROVIDERS: ADMIT Nurse Practitioner Family; ATTEND Family Medicine
PROC: 0DB68ZX Excision of Stomach, Via Natural or Artificial Opening Endoscopic, Diagnostic (ICD-10-PCS; 2024-07-10)
PROC: 0DB98ZX Excision of Duodenum, Via Natural or Artificial Opening Endoscopic, Diagnostic (ICD-10-PCS; principal; 2024-07-10 07:48)
DX: K25.9 Gastric ulcer, unspecified as acute or chronic, without hemorrhage or perforation (principal); N30.01 Acute cystitis with hematuria; Z68.41 Body mass index [BMI] 40.0-44.9, adult; K29.70 Gastritis, unspecified, without bleeding; K44.9 Diaphragmatic hernia without obstruction or gangrene; I25.10 Atherosclerotic heart disease of native coronary artery without angina pectoris; R73.9 Hyperglycemia, unspecified; D50.9 Iron deficiency anemia, unspecified; F32.A Depression, unspecified; E66.9 Obesity, unspecified; I12.9 Hypertensive chronic kidney disease with stage 1 through stage 4 chronic kidney disease, or unspecified chronic kidney disease; N18.9 Chronic kidney disease, unspecified; Z88.1 Allergy status to other antibiotic agents; Z91.041 Radiographic dye allergy status; Z79.899 Other long term (current) drug therapy; Z88.0 Allergy status to penicillin; Z95.5 Presence of coronary angioplasty implant and graft; Z87.440 Personal history of urinary (tract) infections; Z80.42 Family history of malignant neoplasm of prostate; Z86.718 Personal history of other venous thrombosis and embolism
CPT/HCPCS: 36415; 71045; 74176; 76700; 80053; 81001; 83036; 83690; 83880; 84484; 85025; 87086; 99291; G0378; J1956; J2003; J2250; J2405; J2470; J2704